=== PATIENT | female | born 1985 | race Two or more races ===

== ENCOUNTER 2018-02-28 18:05 | Emergency (ER) | payer OTHER ==
[~2018-02-28] VITALS: Ht 177.8 cm; Wt 97.5 kg
[2018-02-28] MEDS ORDERED: SYNTHROID137 MCG (18:56)
[2018-02-28] MEDS ORDERED: ALBUTEROL S5 MG/1 ML (18:57)
[2018-02-28] MEDS ORDERED: PNEU16DI2 (18:57)
== END 2018-02-28 19:50 | disposition home or self-care (01) ==
LOC: ER 18:05
DX: H60.8X3 Other otitis externa, bilateral (principal)

== ENCOUNTER 2018-07-05 07:42 | Emergency (ER) | payer OTHER ==
[~2018-07-05] VITALS: Ht 177.8 cm; Wt 97.1 kg
[~2018-07-05 07:42] MED LIST: ALBUTEROL S5 MG/1 ML; PNEU16DI2; SYNTHROID137 MCG
== END 2018-07-05 13:58 | disposition home or self-care (01) ==
LOC: ER 07:42
DX: K52.9 Noninfective gastroenteritis and colitis, unspecified (principal); E86.0 Dehydration

== ENCOUNTER 2018-10-02 08:36 | Emergency (ER) | payer OTHER ==
[~2018-10-02] VITALS: Ht 177.8 cm; Wt 92.5 kg
== END 2018-10-02 12:55 | disposition home or self-care (01) ==
LOC: ER 08:36
DX: D25.9 Leiomyoma of uterus, unspecified (principal); R10.2 Pelvic and perineal pain

== ENCOUNTER 2018-10-07 22:15 | Inpatient (IN) | payer OTHER ==
[~2018-10-07] VITALS: Ht 177.8 cm; Wt 92.5 kg
[2018-10-10] MEDS ORDERED: IBUPROFEN800 MG PO (15:36)
[2018-10-10] MEDS ORDERED: SURFAK240 M1 PO (15:36)
== END 2018-10-10 16:27 | disposition home or self-care (01) | DRG 819 ==
LOC: ER 22:15 → OB/GYN 10-08 12:27 → SEC-K 10-08 12:27 → OB/GYN 10-08 16:17
PROVIDERS: ADMIT Specialist
PROC: 0UB60ZZ Excision of Left Fallopian Tube, Open Approach (ICD-10-PCS; principal; 2018-10-09 14:00)
DX: O00.102 Left tubal pregnancy without intrauterine pregnancy (principal)

== ENCOUNTER 2018-11-24 08:56 | Outpatient (CLI) | payer OTHER ==
[~2018-11-24 08:56] MED LIST changes: +IBUPROFEN800 MG PO; +SURFAK240 M1 PO
== END 2018-11-24 09:10 | disposition home or self-care (01) ==
LOC: RAD 08:56
DX: R10.84 Generalized abdominal pain (principal)

== ENCOUNTER 2018-11-24 09:43 | Outpatient (CLI) | payer OTHER | END 2018-11-24 09:52 | disposition home or self-care (01) | LOC: LAB 09:43 | DX: E03.8 Other specified hypothyroidism (principal); R10.84 Generalized abdominal pain; E78.49 Other hyperlipidemia; R62.59 Other lack of expected normal physiological development in childhood ==

== ENCOUNTER 2018-11-29 09:46 | Outpatient (CLI) | payer OTHER | END 2018-11-29 09:47 | disposition home or self-care (01) | LOC: LAB 09:46 | DX: E78.49 Other hyperlipidemia (principal); R10.84 Generalized abdominal pain; E03.8 Other specified hypothyroidism ==

== ENCOUNTER 2019-03-21 13:38 | Emergency (ER) | payer OTHER ==
[~2019-03-21] VITALS: Ht 177.8 cm; Wt 90.7 kg
== END 2019-03-21 17:12 | disposition home or self-care (01) ==
LOC: ER 13:38
DX: B34.9 Viral infection, unspecified (principal); B96.0 Mycoplasma pneumoniae [M. pneumoniae] as the cause of diseases classified elsewhere

== ENCOUNTER 2019-04-14 18:31 | Emergency (ER) | payer OTHER ==
[~2019-04-14] VITALS: Ht 177.8 cm; Wt 90.7 kg
[2019-04-14] MEDS ORDERED: SYMBICORT 16010.2 GM IH (18:37)
[2019-04-14] MEDS ORDERED: CLARITIN10 MG PO (18:51)
[2019-04-14] MEDS ORDERED: TUSNEL LIQUID178 ML PO (18:51)
[2019-04-14] MEDS ORDERED: AMOX-CLAV 875-1 EACH PO (18:51)
== END 2019-04-14 19:13 | disposition home or self-care (01) ==
LOC: ER 18:31
DX: J35.01 Chronic tonsillitis (principal)

== ENCOUNTER 2019-06-28 19:41 | Emergency (ER) | payer OTHER ==
[~2019-06-28] VITALS: Ht 177.8 cm; Wt 89.8 kg
[~2019-06-28 19:41] MED LIST changes: +AMOX-CLAV 875-1 EACH PO; +CLARITIN10 MG PO; +SYMBICORT 16010.2 GM IH; +TUSNEL LIQUID178 ML PO
[2019-06-29] MEDS ORDERED: ALLEGRA-D 12 H1 EACH PO (01:47)
[2019-06-29] MEDS ORDERED: ZYNCOF 20-400120 ML PO (01:47)
== END 2019-06-29 02:05 | disposition home or self-care (01) ==
LOC: ER 19:41
DX: J06.9 Acute upper respiratory infection, unspecified (principal)

== ENCOUNTER 2020-09-03 10:55 | Day surgery (SDC) | payer OTHER ==
[~2020-09-03 10:55] MED LIST changes: +ALLEGRA-D 12 H1 EACH PO; +PROAIR HFA8.5 GM IH; +ZYNCOF 20-400120 ML PO
== END 2020-09-03 19:20 | disposition home or self-care (01) ==
LOC: CIR.AMB 10:55
PROVIDERS: ATTEND Specialist
DX: N87.1 Moderate cervical dysplasia (principal); Z20.822 Contact with and (suspected) exposure to COVID-19

== ENCOUNTER 2022-01-28 11:12 | Emergency (ER) | payer OTHER ==
[~2022-01-28] VITALS: Ht 177.8 cm; Wt 86.2 kg
[2022-01-28] MEDS ORDERED: SYMBICORT 16010.2 GM IH (11:53)
== END 2022-01-28 17:53 | disposition home or self-care (01) ==
LOC: ER 11:12
DX: R51.9 Headache, unspecified (principal); J45.909 Unspecified asthma, uncomplicated; E03.9 Hypothyroidism, unspecified; Z20.822 Contact with and (suspected) exposure to COVID-19

== ENCOUNTER 2025-03-20 09:00 | Inpatient (IN) | payer OTHER ==
[~2025-03-20] VITALS: Ht 177.8 cm; Wt 86.2 kg
[2025-03-20] MEDS ORDERED: VITABEX IRON C1 EACH (10:14)
[2025-03-20] MEDS ORDERED: MEGACE (10:14)
[2025-03-20 10:26] VITALS: BP 134/80
[2025-03-20 11:41] LABS: BASO % 0.4 % (0.1-1.2); EOS # 0.21 (0.04-0.54); EOS % 4.1 % (0.7-7.0); LYMPH # 1.91 (1.18-3.74); LYMPH % 37.6 % (19.3-53.1); MEAN PLATELET VOLUME 8.90 fl (9.4-12.4); MONO # 0.37 (0.24-0.82); MONO % 7.3 % (4.7-12.5); NEUT # 2.56 (1.56-6.13); NEUT % 50.4 % (34.0-71.1); RED CELL DISTRIBUTION WIDTH 15.6 % (11.6-14.4); URINE APPEARANCE Clear; URINE BILIRRUBIN Negative (NEGATIVE); URINE BLOOD Large; URINE COLOR Yellow; URINE GLUCOSE Negative (NEGATIVE); URINE KETONE Negative (NEGATIVE); URINE LEUKOCYTE Trace; URINE NITRATE Negative; URINE PROTEIN Negative (NEGATIVE); URINE UROBILINOGEN 0.2 E.U./dl
[2025-03-20 11:45] LABS: URINE BACTERIA 58.7 uL (0.0-1933); URINE EPITHELIAL CELLS 3.0 uL (0.0-38.8); URINE RBC 18.1 uL (0.0-20.8); URINE WBC 2.7 uL (0.0-23.2)
[2025-03-20 11:48] LABS: URINE CAST 0.00 uL (0.0-1.40)
[2025-03-20 12:05] LABS: INR 0.97
[2025-03-20 12:07] LABS: ALT/SGPT 38.0 U/L (12-78); AST/SGOT 18.0 U/L (15-37); BILIRUBIN TOTAL 0.57 mg/dL (0.3-1.2); BUN CREA RATIO 20.0 (7.0-25.0); CREATININE SERUM 0.75 mg/dL (0.55-1.02); GFR 85.58; GLOBULINA 3.6 G/DL (2.4-3.5); GLUCOSE FASTING 78.0 mg/dL (65-100); OSMOLALITY SERUM 283.0 MOSM/KG (275-295)
[2025-03-27] MEDS ORDERED: CEFAZOLIN SODIUM 1,000 MG VIAL ONE (12:05)
[2025-03-27] MEDS ORDERED: POVIDONE-IODINE 118 ML BOTT TOP ONE (14:45)
[2025-03-27] MEDS ORDERED: THROMBIN,HU/FIBRINOGEN/CALCIUM 4 ML SYRINGE TOP ONE (15:26)
[2025-03-27] MEDS ORDERED: SUGAMMADEX SODIUM 200 MG/2 ML VIAL IV ONE (15:58)
[2025-03-27] MEDS ORDERED: MORPHINE SULFATE 4 MG/ML CARTRIDGE IV PRN (20:00)
[2025-03-27] MEDS ORDERED: KETOROLAC TROMETHAMINE 60 MG VIAL IM ONE (21:00)
[2025-03-27 21:33] VITALS: BP 123/78
[2025-03-27 22:15] LABS: BASO % 0.1 % (0.1-1.2); EOS # 0.00 (0.04-0.54); EOS % 0.0 % (0.7-7.0); LYMPH # 0.91 (1.18-3.74); LYMPH % 9.5 % (19.3-53.1); MEAN PLATELET VOLUME 9.10 fl (9.4-12.4); MONO # 0.60 (0.24-0.82); MONO % 6.3 % (4.7-12.5); NEUT # 8.07 (1.56-6.13); NEUT % 84.0 % (34.0-71.1); RED CELL DISTRIBUTION WIDTH 14.8 % (11.6-14.4)
[2025-03-27 23:50] VITALS: BP 109/65
[2025-03-28 04:30] VITALS: BP 105/66
[2025-03-28] MEDS ORDERED: DOCUSATE SODIUM 100MG CAP PO ONE (07:00)
[2025-03-28] MEDS ORDERED: SIMETHICONE 125 MG CAPSULE PO ONE (07:00)
[2025-03-28] MEDS ORDERED: ACETAMINOPHEN 325 MG TABLET PO SCH (08:00)
[2025-03-28] MEDS ORDERED: OxyCODONE HCL 5 MG TABLET (ROXICODONE) PO SCH (08:00)
[2025-03-28 08:17] VITALS: BP 119/69
[2025-03-28 16:51] VITALS: BP 112/73
[2025-03-29 00:43] VITALS: BP 103/62
[2025-03-29 03:00] VITALS: BP 104/67
[2025-03-29] MEDS ORDERED: LEVOTHYROXINE SODIUM 137 MCG TABLET PO SCH (06:00)
[2025-03-29 08:00] VITALS: BP 115/74
[2025-03-29] MEDS ORDERED: KETOROLAC TROMETHAMINE 60 MG VIAL IM NR (09:00)
[2025-03-29] MEDS ORDERED: ORPHENADRINE CITRATE 30 MG/ML AMPUL IM NR (09:00)
[2025-03-29] MEDS ORDERED: MAGNESIUM HYDROXIDE 30 ML BLIST.PACK PO NR (09:00)
[2025-03-29] MEDS ORDERED: MINERAL OIL 30 ML BLIST.PACK PO NR (09:00)
[2025-03-29 19:29] VITALS: BP 116/75
== END 2025-03-29 17:32 | disposition home or self-care (01) | DRG 743 ==
LOC: SURH 03-27 06:45 → O/R 03-27 11:00 → OB/GYN 03-27 17:54
PROVIDERS: ADMIT Specialist; ATTEND Specialist
PROC: 0UT90ZZ Resection of Uterus, Open Approach (ICD-10-PCS; principal; 2025-03-27 06:45)
DX: D25.1 Intramural leiomyoma of uterus (principal); D25.2 Subserosal leiomyoma of uterus; Z90.710 Acquired absence of both cervix and uterus; N72 Inflammatory disease of cervix uteri